=== PATIENT | male | born 1990 | race Caucasian/White ===

== ENCOUNTER 2020-03-12 19:14 | Emergency (ER) | payer MEDICAID ==
[~2020-03-12] VITALS: Ht 157.5 cm; Wt 66.2 kg
[2020-03-12 19:23] VITALS: BP 112/69; Ht 157.5 cm; Wt 66.2 kg
== END 2020-03-12 19:50 | disposition home or self-care (01) ==
LOC: ED 19:14
DX: S02.5XXA Fracture of tooth (traumatic), initial encounter for closed fracture (principal); F17.210 Nicotine dependence, cigarettes, uncomplicated; X58.XXXA Exposure to other specified factors, initial encounter; Y93.89 Activity, other specified; Y92.89 Other specified places as the place of occurrence of the external cause; Y99.8 Other external cause status